=== PATIENT | male | born 1970 | race Caucasian/White ===

== ENCOUNTER 2017-02-25 09:35 | Inpatient (IN) | payer BC ==
[~2017-02-25] VITALS: Ht 177.8 cm; Wt 83.0 kg
[2017-02-25] MEDS ORDERED: IV NS 0.9% 1,000 ML ONE (09:44)
--- NOTE | 2017-02-25 09:50 | NUR ---
PT SENT FROM URGENT CARE FOR NEW ONSET OF AFIB. NOTED HR 150S. WITH C/O DIFFICULTY BREATHING/ PRESSURE ON CHEST. OTHER VSS. SEEN BY MD FOR EVAL. SAFETY AND COMFORT MEASURES PROVIDED. WILL MONITOR.
[2017-02-25] MEDS ORDERED: METOPROLOL TARTRATE INJ 5 MG/5 ML AMPUL ONE ×3 (09:56→10:35)
[2017-02-25 09:58] LABS: BASOPHILS # (AUTO) 0.1 /CMM (0.0-0.2); EOSINOPHILS # (AUTO) 0.1 /CMM (0.0-0.7); EOSINOPHILS % (AUTO) 0.7 % (0.0-6.0); HEMATOCRIT 51 % (39-51); HEMOGLOBIN 17.3 g/dL (13.5-17.5); LYMPHOCYTES # (AUTO) 2.5 /CMM (0.8-4.8); LYMPHOCYTES % (AUTO) 25.8 % (20.0-44.0); MEAN CORPUSCULAR HEMOGLOBIN 30 PG (26.0-33.0); MEAN CORPUSCULAR HGB CONC 34 g/dl (31.0-36.0); MEAN CORPUSCULAR VOLUME 88 fL (80-96); MONOCYTES # (AUTO) 0.7 /CMM (0.1-1.30); MONOCYTES % (AUTO) 7.7 % (2.0-12.0); NEUTROPHILS # (AUTO) 6.3 /CMM (1.8-8.9); NEUTROPHILS % (AUTO) 64.8 % (43.0-81.0); PLATELET COUNT (AUTO) 218 /CMM (150-450); RDW COEFFICIENT OF VARIATION 12.7 (11.5-15.0); WHITE BLOOD COUNT (AUTO) 9.7 K/uL (4.3-11.0)
[2017-02-25] MEDS ORDERED: IV NS 0.9% 1,000 ML BAG IV ONE (10:00)
[2017-02-25] MEDS ORDERED: METOPROLOL TARTRATE INJ 5 MG/5 ML AMPUL IV ONE ×3 (10:00→11:00)
[2017-02-25 10:08] LABS: CALCIUM, SERUM 8.9 mg/dL (8.5-10.1); CARBON DIOXIDE 27 mmol/L (21-32); CHLORIDE 106 mmol/L (98-107); CREATININE 1.2 mg/dL (0.6-1.3); GLUCOSE 118 mg/dL (74-106); POTASSIUM 4.5 mmol/L (3.5-5.1); SODIUM SERUM 141 mmol/L (136-145); UREA NITROGEN, BLOOD 20 mg/dL (7-18)
[2017-02-25 10:13] LABS: INR 0.99 (0.87-1.13); PROTHROMBIN TIME 10.3 SECS (9.5-12.7)
[2017-02-25 10:17] LABS: TROPONIN I < 0.017 ng/mL (0.00-0.056)
[2017-02-25] MEDS ORDERED: FENTANYL PF 100MCG/2ML AMPUL ONE (10:50)
[2017-02-25] MEDS ORDERED: PROPOFOL 20 ML IV ONE (10:50)
[2017-02-25] MEDS ORDERED: IV NS 0.9% 500 ML IV ONE (10:52)
[2017-02-25] MEDS ORDERED: PROPOFOL 200 MG/20 ML VIAL IV ONE ×2 (11:00→11:30)
[2017-02-25] MEDS ORDERED: FENTANYL PF 100MCG/2ML AMPUL IV ONE (11:00)
--- NOTE | 2017-02-25 11:22 | NUR ---
MEI PAGED, ELEMENTARY EDUCATION TUTOR
--- NOTE | 2017-02-25 11:26 | NUR ---
CARDIOVERSION WITH PROCEDURAL SEDATION DONE AT BY DR. CAMERON. PT REMAINS ON CERTIFIED PEER SPECIALIST. VSS. PT AAOX3. WILL CONTINUE TO MONITOR.
--- NOTE | 2017-02-25 11:28 | NUR ---
PT GOING TO TELE 113-2
--- NOTE | 2017-02-25 11:29 | NUR ---
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
[2017-02-25] MEDS ORDERED: METOPROLOL TARTRATE 25 MG TABLET PO ONE (12:00)
[2017-02-25] MEDS ORDERED: METOPROLOL TARTRATE 25 MG TABLET ONE (12:11)
--- NOTE | 2017-02-25 12:12 | NUR ---
REPORT GIVEN TO CHRISTELLE BROWNING FOR TELE 113-2.
[2017-02-25 13:00] VITALS: BP 108/80
[2017-02-25] MEDS ORDERED: MULT-1119 PO (13:32)
[2017-02-25] MEDS ORDERED: Z GUARD REMEDY 2 OZ OINT TP PRN (14:00)
[2017-02-25] MEDS ORDERED: MAG HYDROX/AL HYDROX/SIMETH 30 ML UDC PO PRN (14:00)
[2017-02-25] MEDS ORDERED: ONDANSETRON HCL/PF 4 MG/2 ML VIAL IVP PRN (14:00)
[2017-02-25] MEDS ORDERED: HYDROCODONE/APAP 5/325MG 1 EACH TABLET PO PRN (14:00)
[2017-02-25] MEDS ORDERED: ACETAMINOPHEN 325 MG TABLET PO PRN (14:00)
[2017-02-25] MEDS ORDERED: ZOLPIDEM TARTRATE 5 MG TABLET PO PRN (14:00)
[2017-02-25] MEDS ORDERED: MAGNESIUM HYDROXIDE 30 ML UDC PO PRN (14:00)
--- NOTE | 2017-02-25 14:00 | NUR ---
RN NOTES: PT RECEIVED FROM ER IN STABLE CONDITION ALERT AWAKE OX3. ON ROOM AIR, BREATHING PATTERN REGULAR & UNLABORED. S/P CARDIOVERSION DONE IN THE ER. ON TELE MONITOR SINUS RHYTHM. VITAL SIGNS STABLE & DOCUMENTED. AT BEDSIDE. PT DENIES PAIN & DISCOMFORT. IV SITE INTACT, DRESSING CLEAN AND DRY. EASILY FLUSHED WITH NS. SAFETY MEASURES OBSERVED. ROOM ORIENTATION PROVIDED. DR. FINK AWARE. CALL LIGHT WITHIN REACH. WILL CONTINUE TO MONITOR.
--- NOTE | 2017-02-25 15:30 | NUR ---
RN NOTES: PT SEEN BY DR. FINK & DR. DOMINGUEZ AT BEDSIDE.
[2017-02-25 16:00] VITALS: BP 105/78
[2017-02-25] MEDS ORDERED: RIVAROXABAN 10 MG TABLET PO SCH (17:00)
[2017-02-25 19:00] VITALS: BP 120/82
--- NOTE | 2017-02-25 19:43 | NUR ---
RN INITIAL NOTES: RECEIVED PT FROM AM SHIFT IN STABLE CONDITION ALERT AWAKE OX3. ON ROOM AIR, BREATHING PATTERN REGULAR & UNLABORED. S/P CARDIOVERSION DONE IN THE ER. ON TELE MONITOR SINUS RHYTHM. VITAL SIGNS STABLE & DOCUMENTED. AT BEDSIDE. PT DENIES PAIN & DISCOMFORT. IV SITE INTACT, DRESSING CLEAN AND DRY. EASILY FLUSHED WITH NS. SAFETY MEASURES OBSERVED. ROOM ORIENTATION PROVIDED. DR. FINK AWARE. CALL LIGHT WITHIN REACH. WILL CONTINUE TO MONITOR.
[2017-02-25 20:00] VITALS: BP 120/82
[2017-02-26] VITALS: BP 122/82
[2017-02-26 04:00] VITALS: BP 124/87
--- NOTE | 2017-02-26 06:23 | NUR ---
RN CLOSING NOTES: ENDORSED PT TO AM SHIFT IN STABLE CONDITION ALERT AWAKE OX3. ON ROOM AIR, BREATHING PATTERN REGULAR & UNLABORED. S/P CARDIOVERSION DONE IN THE ER. ON TELE MONITOR SINUS RHYTHM. VITAL SIGNS STABLE & DOCUMENTED. PT DENIES PAIN & DISCOMFORT. IV SITE INTACT, DRESSING CLEAN AND DRY. EASILY FLUSHED WITH NS. SAFETY MEASURES OBSERVED. ROOM ORIENTATION PROVIDED. CALL LIGHT WITHIN REACH. WILL CONTINUE TO MONITOR.
[2017-02-26 07:53] LABS: BASOPHILS % (AUTO) 0.6 % (0.0-2.0); EOSINOPHILS # (AUTO) 0.1 /CMM (0.0-0.7); EOSINOPHILS % (AUTO) 1.5 % (0.0-6.0); HEMATOCRIT 45 % (39-51); HEMOGLOBIN 15.7 g/dL (13.5-17.5); LYMPHOCYTES # (AUTO) 2.5 /CMM (0.8-4.8); LYMPHOCYTES % (AUTO) 37.2 % (20.0-44.0); MEAN CORPUSCULAR HEMOGLOBIN 31 PG (26.0-33.0); MEAN CORPUSCULAR HGB CONC 35 g/dl (31.0-36.0); MEAN CORPUSCULAR VOLUME 87 fL (80-96); MONOCYTES # (AUTO) 0.6 /CMM (0.1-1.30); NEUTROPHILS # (AUTO) 3.4 /CMM (1.8-8.9); NEUTROPHILS % (AUTO) 51.7 % (43.0-81.0); PLATELET COUNT (AUTO) 175 /CMM (150-450); RDW COEFFICIENT OF VARIATION 13.3 (11.5-15.0); RED BLOOD CELL COUNT(AUTO) 5.16 MIL/uL (4.5-6.0); WHITE BLOOD COUNT (AUTO) 6.6 K/uL (4.3-11.0)
[2017-02-26 08:00] VITALS: BP 123/97
[2017-02-26 08:16] LABS: CALCIUM, SERUM 8.7 mg/dL (8.5-10.1); CREATININE 0.9 mg/dL (0.6-1.3); MAGNESIUM 1.9 mg/dL (1.8-2.4); PHOSPHORUS 3.6 mg/dL (2.5-4.9); POTASSIUM 4.2 mmol/L (3.5-5.1)
[2017-02-26 12:00] VITALS: BP 112/84
[2017-02-26] MEDS ORDERED: RIVA10TA PO (14:05)
--- NOTE | 2017-02-26 15:07 | NUR ---
Patient discharged home, vitals stable. No chest pain. at bedside with patient, reviewed discharge instructions and answered questions. Belongings checked and list signs. According to , maldonado already confirmed with pharmacy.
== END 2017-02-26 18:34 | disposition home or self-care (01) | DRG 308 ==
LOC: ER 09:37 → TELE1 11:56
PROVIDERS: ADMIT Family Medicine; ATTEND Family Medicine
PROC: 5A2204Z Restoration of Cardiac Rhythm, Single (ICD-10-PCS; principal; 2017-02-25)
DX: I48.0 Paroxysmal atrial fibrillation (principal); N17.0 Acute kidney failure with tubular necrosis; K21.9 Gastro-esophageal reflux disease without esophagitis; Z87.891 Personal history of nicotine dependence; F10.10 Alcohol abuse, uncomplicated; Z87.898 Personal history of other specified conditions
CPT/HCPCS: 36415; 80048-TC; 80061-TC; 83735-TC; 84100-TC; 84443-TC; 84484-TC; 85025-TC; 85730-TC; 87081-TC; 93307-TC; A4606; J2704; J3010; J3490; J7030; J7040; Z7610